=== PATIENT | female | born 2000 | race Two or more races ===

== ENCOUNTER 2025-01-27 10:26 | Emergency (ER) | payer MEDICAID, SELFPAY ==
[2025-01-27] VITALS (8 sets, daily range): BP systolic 91–121; BP diastolic 50–85; PULSE 82–207; RESP 19–25; TEMP 36.8; O2SAT 96–98; BMI 20.5
[2025-01-27] MEDS: ADENOSINE INJ 3 MG/ML VIAL 6 MG IVP (10:44)
--- NOTE | 2025-01-27 11:13 | EDNOTE_ITS ---
ED Arrhythmia Palp. RME/HPI General Chief Complaint: Arrhythmia/Palpitations Stated Complaint: HEART IS RACING, DIFF. BREATHING, HAS A.FIB Time Seen by Provider: 01/27/25 10:36 Arrival date/time: 01/27/25 10:26 24-year-old female patient coming in from home complaining of elevated heart rate, palpitations, mild dyspnea. Patient has a history of SVT. States this feels similar. Initial vital signs show heart rate greater than 200. Related Data Home Medications ?Medication ?Instructions ?Recorded ?Confirmed ferrous sulfate 325 mg (65 mg 1 tab PO DAILY 12/12/21 12/11/22 iron) tablet Previous Rx's ?Medication ?Instructions ?Recorded naproxen 500 mg tablet 500 mg PO BID PRN pain #30 t abs 04/22/23 Allergies Allergy/AdvReac Type Severity Reaction Status Date / Time [place]ang And Derivatives Allergy Severe Hives Verified 01/27/25 10:28 cat dander Allergy Watery Eye Verified 01/27/25 10:28 dog dander Allergy Watery Eye Verified 01/27/25 10:28 pollen extracts Allergy Watery Eye Verified 01/27/25 10:28 Review of Systems Review of Systems Systems Reviewed: All systems reviewed, normal except as documented Past Medical History Past Medical History NEUROLOGIC: Positive Neurological Disorders and 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) CARDIAC: Negative Cardiac Disorders or Congestive Heart Failure RESPIRATORY: Positive Asthma; Negative Chronic Obstructive Pulmonary Disease (COPD) GASTROINTESTINAL: Positive Gastrointestinal Disorders and Gastroesophageal Reflux Disease GENITOURINARY: Negative Genitourinary Disorders or Renal Disease MUSCULOSKELETAL: Negative Musculoskeletal Disorders ENDOCRINE: Negative Endocrine Disorders, Diabetes Mellitus Type 1 or Diabetes Mellitus Type 2 HEMATOLOGIC: Positive Anemia; Negative Blood Disorders PSYCHO/SOCIAL: Positive Anxiety Family History FAMILY HISTORY: Negative Family Cardiac Disorders Surgical History SURGICAL: Negative Endocrine Surgery, Ear Surgery or Abdominal Surgery Social History SMOKING STATUS: Current some day smoker SUBSTANCE USE: marijuana (smokes) ED Exam Narrative Physical exam: GENERAL APPEARANCE: alert and oriented x 4, well-developed, well-nourished, no acute distress VITALS: All vitals were reviewed and the pulse ox is 96% on room air, which is normal according to my interpretation. HEENT: Normocephalic, atraumatic; pupils equal, round, reactive to light; EOMI; mucous membranes pink, moist; oropharynx clear NECK: Supple LUNGS: CTABL; no wheezes, no rales, no rhonchi HEART: Tachycardic, regular rhythm; normal S1, S2; no murmurs ABDOMEN: non distended; normal BS; soft, no tenderness, no guarding, no rebound; no masses, no organomegaly, no hernia BACK: no CVA tenderness EXTREMITIES: atraumatic; no edema NEUROLOGIC: awake; alert and oriented x4; cranial nerves II-XII grossly intact; no focal sensory or motor deficits PSYCHIATRIC: appropriate mood and affect SKIN: warm, dry, normal color; no rashes Course Quality Measures none Orders Category Date Time Status Adenosine 6mg Inj [Adenocard Inj] Med 01/27/25 10:56 Discontinued 6 mg IVP X1 ONE Vital Signs Vital signs: Vital Signs Pulse Rate 200 H 01/27/25 10:40 Arrhythmia/Palpitations MDM Narrative MDM Narrative:: Patient given Adenosine 6 mg IV. Patient converted to sinus rhythm. Patient was observed for several hours without any complications. Patient remained stable while under my care and is to be discharged home. Patient data External records reviewed:: [facility] previous records (Per chart review, patient was seen here on 08/23/23 for SVT.) Clinical information provided by:: patient Social determinants that could affect healthcare access:: none Patient has the following chronic illnesses:: asthma How is presenting disease/condition affected by chronic disease/condition?: uneffected by Evaluation data The following diagnostics were reviewed and interpreted by me:: lab results, radiology exam(s) and EKG tracing(s) Lab and/or radiology exams considered but not ordered:: none Interpretation Summary: CBC normal, CMP normal, Troponin normal, UA unremarkable, UDS positive for marijuana. EKG shows sinus tachycardia, rate of 100, artifact, normal axis, no STEMI, according to my interpretation. [place] [facility] Report Signed Patient: CHRISTINE RUANO. Record#: [id number] Birthdate: 2000 Age/Sex: 24 / F Location: [facility] Attending Dr: Ordering Physician: Racheal Aiken MD Date of Service: 01/27/25 Procedure(s): XR chest 1V portable Accession Number(s): [id number] cc: Venkat Matias MD; NO PRIMARY/FAMILY,PHYSICIAN; Racheal Aiken MD~ Examination: AP chest single view TECHNIQUE: Upright AP portable chest single view Date and time: January 27, 2025 1141 hours Comparison December 11, 2022 INDICATIONS: Chest pain today. FINDINGS: Normal heart size. Lungs are clear. The osseous structures are intact IMPRESSION: No active disease. Dictated By: Venkat Matias MD Signed By: <Electronically signed by Venkat Matias MD in OV> 01/27/25 1153 Medications / Prescriptions Medications or Prescriptions considered but not ordered:: none Medication administrations:: Medication Administration History Discontinued Medications Adenosine (Adenosine Inj 3 Mg/Ml Vial) 6 mg IVP X1 ONE Stop: 01/27/25 10:57 Last Admin: 01/27/25 10:44 Dose: 6 mg Documented By: VG see above Consultations Consultation(s) initiated? (list below): No Diagnosis Differential diagnosis arrhythmia/palpitations: palpitations, sinus tachycardia, artial fibrillation, artial flutter and other (SVT, ACS, other arrhythmia) Most likely diagnosis given after review of the tests above:: see clinical impression below Admission Indicated Admission indicated?: not indicated Admission Request Was there a request for admission?: No Disposition Plan Disposition Plan: Discharge Discharge Attestation Discharge Attestation: The patient and all family members were given an opportunity to ask questions and understood the discharge instructions. Discharge instructions specifically effects, indications for sooner follow up or return to the emergency department, and the expected course of current diagnosis. Patient condition: Stable Critical Care Time Critical Care Time Critical Care Time: Yes Total Critical Care Time (min.): 35 Attestation: The high probability of sudden, clinically significant deterioration in the patient?s condition required the highest level of my preparedness to intervene urgently. The services I provided to this patient were to treat and/or prevent clinically significant deterioration. Services included the following: chart data review, reviewing nursing notes and/or old charts, documentation time, fashion consultant sales collaboration regarding findings and treatment options, medication orders and management, direct patient care, vital sign assessments and ordering, interpreting and reviewing diagnostic studies and lab tests. Aggregate critical care time includes only time during which I was engaged in work directly related to the patient?s care, as described above, whether at bedside or elsewhere in the Emergency Department. It did not include time spent performing other reported procedures or the services of residents, students, nurses or physician assistants. Discharge Plan Plan Patient Disposition: HOME (Self Care) Prescriptions/Referrals Prescriptions/Med Rec: No Action ferrous sulfate 325 mg (65 mg iron) tablet 1 tab PO DAILY Patient Comments: TAKE 1 TABLET BY MOUTH EVERY DAY FOR 30 DAYS naproxen 500 mg tablet 500 mg PO BID PRN (Reason: pain) Qty: 30 0RF Referrals: No Primary/Family,Physician [Primary Care Provider] - In 1 week Problem List Clinical Impression: SVT (supraventricular tachycardia) Patient/Caregiver Discharge Instructions Education Materials: Supraventricular Tachycardia Print Language: Montenegrin Stand Alone Forms: Sary Award Info., Patient Portal Info Letter
--- NOTE | 2025-01-27 11:33 | XR_ITS ---
Examination: AP chest single view TECHNIQUE: Upright AP portable chest single view Date and time: January 27, 2025 1141 hours Comparison December 11, 2022 INDICATIONS: Chest pain today. FINDINGS: Normal heart size. Lungs are clear. The osseous structures are intact IMPRESSION: No active disease.
[2025-01-27 12:27] LABS: Collection Type, Urine Clean Catch
[2025-01-27 12:32] LABS: Basophils # (Auto) 0.0 Thou/mm3 (0.0-0.2); Basophils % (Auto) 1 % (0-2.5); Eosinophils # (Auto) 0.1 Thou/mm3 (0.0-0.5); Eosinophils % (Auto) 1 % (0-10); Hematocrit 35.1 % (36.0-46.0); Hemoglobin 12.1 g/dL (12.0-16.0); Immature Granulocytes Auto 0.01 Thou/mm3 (0.00-0.00); Lymphocytes # (Auto) 3.0 Thou/mm3 (1.0-4.8); Lymphocytes % (Auto) 40 % (10-50); Mean Corpuscular HGB Conc 34.5 g/dl (31.0-37.0); Mean Corpuscular Hemoglobin 32.0 pg (25.0-35.0); Mean Corpuscular Volume 93 fL (80-100); Monocytes # (Auto) 0.6 Thou/mm3 (0.0-0.8); Monocytes % (Auto) 8 % (0-12); Neutrophils # (Auto) 3.8 Thou/mm3 (1.8-7.7); Neutrophils % (Auto) 51 % (37-80); Nucleated Red Blood Cell # 0.00 Thou/mm3 (0.00-0.00); Nucleated Red Blood Cell % 0 /100 WBC (0); Platelet Count 295 Thou/mm3 (140-440); RDW Standard Deviation 46.8 fL (36.4-46.3); Red Blood Count 3.78 Miln/mm3 (4.00-5.20); White Blood Count 7.4 Thou/mm3 (3.6-11.0)
[2025-01-27 12:45] LABS: Bacteria,Urine Rare; Bilirubin,Urine Negative (Negative); Blood,Urine Negative (Negative); Clarity,Urine Clear (Clear/Hazy); Color,Urine Lt-Yellow (Lt Yel-Yel); Culture Indicated,Urine Not Indicated; Glucose, Urine Negative (Negative); Ketones,Urine Negative (Negative); Leukocyte Esterase,Urine Negative (Negative); Nitrite,Urine Negative (Negative); PH,Urine 6.5 (5.0-7.0); Protein,Urine Negative (Neg - Trace); RBC,Urine 1 /hpf (0-3); Specific Gravity,Urine 1.009 (1.001-1.035); Squamous Epithelial Cell,Urine 1 /hpf (0-5); Urobilinogen,Urine Negative mg/dL (0.0-1.0); WBC,Urine 1 /hpf (0-5)
[2025-01-27 12:46] LABS: INR 1.0 (0.9-1.3); Partial Thromboplastin Time 25.9 Seconds (22.0-36.0); Prothrombin Time 11.4 Seconds (9.0-12.2)
[2025-01-27 12:46] LABS: HCG Qualitative,Urine Negative
[2025-01-27 12:52] LABS: Alanine Aminotransferase 16 U/L (10-49); Albumin, Serum 4.5 gm/dL (3.5-5.0); Albumin/Globulin Ratio 1.7 (1.2-2.2); Alkaline Phosphatase 75 U/L (46-116); Anion Gap 9 (7-16); Aspartate Amino Transferase 29 U/L (0-34); BUN/Creatinine Ratio 10 Ratio (12-20); Bilirubin,Total 0.5 mg/dL (0.3-1.2); Blood Urea Nitrogen 9 mg/dL (9-23); Calcium 9.5 mg/dL (8.3-10.6); Calcium (Corrected) 9.5 mg/dL (8.5-10.1); Carbon Dioxide 24.0 mMol/L (20.0-31.0); Chloride 107 mMol/L (98-107); Creatinine (Component) 0.9 mg/dL (0.6-1.3); Estimated Creatinine Clearance 84.3 mL/min (>60); Globulin 2.7 gm/dL (2.3-3.5); Glucose 108 mg/dL (74-106); Magnesium 1.8 mg/dL (1.6-2.6); Osmolality,Calculated 279 (275-295); Potassium 4.1 mMol/L (3.4-5.1); Sodium 140 mMol/L (136-145); Total Protein 7.2 gm/dL (5.7-8.2); Troponin I < 0.002 ng/mL (0.0-0.045); eGFR > 60 See Note
[2025-01-27 13:34] LABS: Amphetamine/Methamp Scrn,U Negative (Negative); Barbiturate Screen,Urine Negative (Negative); Benzodiazepines Screen,Urine Negative (Negative); Benzoylecgonine Screen, Ur Negative (Negative); Fentanyl Screen,Urine Negative (Negative); Opiate Screen,Urine Negative (Negative); THC Screen,Urine Positive (Negative)
== END 2025-01-27 15:28 | disposition home or self-care (01) ==
PROVIDERS: Emergency Provider Emergency Medicine
DX: I47.10 Supraventricular tachycardia, unspecified (principal); I48.91 Unspecified atrial fibrillation
CPT/HCPCS: 36415; 71045; 80053; 80307; 81001; 81025; 83735; 84484; 85025; 85610; 85730; 93005; 96374; 99284; J0153

== ENCOUNTER 2025-02-20 23:39 | Emergency (ER) | payer MEDICAID, SELFPAY ==
--- NOTE | 2025-02-20 23:41 | EKG_ITS ---
[facility] (Formerly [facility]) Test Date: 2025-02-20 Pat Name: CHRISTINE RUANO Department: Room: - Gender: Female Front Desk Manager: : 2000 Requested By: Delbert Medrano Order Number: [id number] Reading MD: Delbert Medrano Measurements Intervals [place] Rate: 91 P: 79 DE: 131 QRS: 71 QRSD: 77 T: 22 QT: 357 QTc: 441 Interpretive Statements SINUS RHYTHM NONSPECIFIC T-WAVE ABNORMALITY Compared to ECG 01/30/2025 04:06:12 Sinus tachycardia no longer present T-wave abnormality still present /store/S0/[id number].pdf
[2025-02-20 23:46] VITALS: BP 129/76; PULSE 100; RESP 20; TEMP 36.8; O2SAT 100
--- NOTE | 2025-02-21 00:13 | PD.EDRME ---
Rapid Medical Screening Exam [facility] Arrival date/time: 02/20/25 23:39 24F with history of SVT and possible history of seizures presents to ED with syncopal episode and possible seizure today. Patient also has CP, SOB, and dizziness. Chief Complaint: General Adult/Misc Complain Vital signs: Vital Signs Temperature 98.2 F 02/20/25 23:46 Pulse Rate 100 02/20/25 23:46 Respiratory Rate 20 02/20/25 23:46 Blood Pressure 129/76 02/20/25 23:46 Pulse Oximetry (%) 100 02/20/25 23:46 Oxygen Delivery Method Room Air 02/20/25 23:46
[2025-02-21 00:42] VITALS: BMI 20.5
--- NOTE | 2025-02-21 01:26 | PD.EDARRY ---
ED Arrhythmia Palp. RME/HPI General Chief Complaint: Seizure Stated Complaint: CHEST AREA PAIN Arrival date/time: 02/20/25 23:39 RME / HPI RME / HPI narrative: 02/20/25 23:39 24F with history of SVT and possible history of seizures presents to ED with syncopal episode and possible seizure today. Patient also has CP, SOB, and dizziness. DR. HARTMAN MAIN ED EVALUATION: 24 y/o female with Hx of SVT and Seizures presents to ED c/o heart palpitations, lightheadedness, right shoulder twitching, and numbness and tingling to the left side of the tongue while trying to sleep x just LPN CARE MANAGER. Her last episode of SVT was approximately 2 weeks ago. Patient reports grabbing onto the window sill and falling to the ground. She has noticed these symptoms occur when trying to sleep or attempting to get up slowly. Patient is on supplemental iron but no medication for management of SVT. Patient has no PCP but is generally seen at [facility]. No other concerns or complaints expressed at this time. Related Data Home Medications ?Medication ?Instructions ?Recorded ?Confirmed ferrous sulfate 325 mg (65 mg 1 tab PO DAILY 12/12/21 12/11/22 iron) tablet Previous Rx's ?Medication ?Instructions ?Recorded naproxen 500 mg tablet 500 mg PO BID PRN pain #30 tabs 04/22/23 metoprolol succinate 25 mg 25 mg PO QDAY #30 tabs 02/21/25 tablet,extended release 24 hr Allergies Allergy/AdvReac Type Severity Reaction Status Date / Time [place] And Derivatives Allergy Severe Hives Verified 01/27/25 10:28 cat dander Allergy Watery Eye Verified 01/27/25 10:28 dog dander Allergy Watery Eye Verified 01/27/25 10:28 pollen extracts Allergy Watery Eye Verified 01/27/25 10:28 Review of Systems Review of Systems Systems Reviewed: All systems reviewed, normal except as documented Past Medical History Past Medical History NEUROLOGIC: Positive Neurological Disorders and Seizures RESPIRATORY: Positive Asthma GASTROINTESTINAL: Positive Gastrointestinal Disorders and Gastroesophageal Reflux Disease HEMATOLOGIC: Positive Anemia Social History SUBSTANCE USE: marijuana (smokes) ED Exam Narrative Physical exam: Generally patient is alert and in no obvious distress, heart is regular rate and rhythm, lungs clear to auscultation equal bilaterally abdomen soft bowel sounds present nondistended nontender neurologic exam no focal motor or sensory deficits cranial nerves II through XII grossly intact Course Quality Measures none Orders Category Date Time Status EKG (ED ONLY) *Do not use* NOW Care 02/20/25 23:41 Completed EKG (ED Only) Stat Exams 02/20/25 23:41 Draft Vital Signs Vital signs: Vital Signs Temperature 98.2 F 02/20/25 23:46 Pulse Rate 100 02/20/25 23:46 Respiratory Rate 20 02/20/25 23:46 Blood Pressure 129/76 02/20/25 23:46 Pulse Oximetry (%) 100 02/20/25 23:46 Oxygen Delivery Method Room Air 02/20/25 23:46 Arrhythmia/Palpitations MDM Narrative MDM Narrative:: Scribe Attestation: Aster Broussard, kaiser scribing for and in the presence of Dr. Hartman. Provider Notation: Although this document has been carefully reviewed, there may still be some phonetic and other typographical errors.? These errors are purely grammatical due to imperfections in the software program and should not be construed in any way to? compromise the substance of the patient's medical care during this visit. Patient did not arrive in supraventricular tachycardia however she has a history of supraventricular tachycardia and may have been in it earlier this evening. Patient will be started on metoprolol to be taken as prescribed. EKG here tonight done at 11:54 PM shows normal sinus rhythm at a rate of 91 without ischemic change or ectopy. Patient did not have an episode of SVT while on the air sampling and monitoring here in the emergency room. Patient will be discharged in stable condition. Patient data External records reviewed:: [facility] previous records (Reviewed prior ED records from 01/27/25. Patient was seen for SVT (supraventricular tachycardia).) Clinical information provided by:: patient Social determinants that could affect healthcare access:: substance use (Marijuana) Patient has the following chronic illnesses:: SVT, Seizure, Asthma, GERD, Anemia How is presenting disease/condition affected by chronic disease/condition?: exacerbated by Evaluation data The following diagnostics were reviewed and interpreted by me:: EKG tracing(s) Lab and/or radiology exams considered but not ordered:: None Interpretation Summary: See MDM above Medications / Prescriptions Medications or Prescriptions considered but not ordered:: None Medication administrations:: See above if any Consultations Consultation(s) initiated? (list below): No Diagnosis Differential diagnosis arrhythmia/palpitations: palpitations, anxiety, sinus tachycardia, artial fibrillation, artial flutter, ventricular premature beats, supraventricular tachycardia, ventricular tachycardia and WPW Most likely diagnosis given after review of the tests above:: SVT Admission Indicated Admission indicated?: not indicated Explain why admission is indicated or not indicated:: Patient does not meet admission criteria. Admission Request Was there a request for admission?: No Disposition Plan Disposition Plan: Discharge Discharge Attestation Discharge Attestation: The patient and all family members were given an opportunity to ask questions and understood the discharge instructions. Discharge instructions specifically effects, indications for sooner follow up or return to the emergency department, and the expected course of current diagnosis. Patient condition: Stable Discharge Plan Plan Patient Disposition: HOME (Self Care) Prescriptions/Referrals Prescriptions/Med Rec: New metoprolol succinate 25 mg tablet extended release 24 hr 25 mg PO QDAY Qty: 30 0RF No Action ferrous sulfate 325 mg (65 mg iron) tablet 1 tab PO DAILY Patient Comments: TAKE 1 TABLET BY MOUTH EVERY DAY FOR 30 DAYS naproxen 500 mg tablet 500 mg PO BID PRN (Reason: pain) Qty: 30 0RF Referrals: Dangelo Alatorre MD [Primary Care Provider] - In 1 week Problem List Clinical Impression: SVT (supraventricular tachycardia) Patient/Caregiver Discharge Instructions Education Materials: Your Heart Is at Risk, Treatment for Supraventricular ... Print Language: Upper Sorbian Stand Alone Forms: Sary Award Info., Patient Portal Info Letter
[2025-02-21 02:11] VITALS: BP 103/67; PULSE 71; RESP 16; TEMP 36.6; O2SAT 98
== END 2025-02-21 02:13 | disposition home or self-care (01) ==
PROVIDERS: Emergency Provider Emergency Medicine; PCP Family Medicine
DX: I47.10 Supraventricular tachycardia, unspecified (principal)
CPT/HCPCS: 93005; 99283

== ENCOUNTER 2025-02-23 16:15 | Emergency (ER) | payer MEDICAID, SELFPAY ==
--- NOTE | 2025-02-23 16:23 | EKG_ITS ---
[facility] Test Date: 2025-02-23 Pat Name: CHRISTINE RUANO Department: Room: - Gender: Female Biology Tutor: : 2000 Requested By: ED Temporary Provider Order Number: [id number] Reading MD: ED Temporary Provider Measurements Intervals [employer] Rate: 75 P: 79 ND: 119 QRS: 68 QRSD: 73 T: -18 QT: 353 QTc: 395 Interpretive Statements SINUS RHYTHM WITH SHORT ND INTERVAL NONSPECIFIC T-WAVE ABNORMALITY Compared to ECG 02/20/2025 23:54:42 Short ND interval now present T-wave abnormality still present /store/S0/[id number]/[id number].pdf
[2025-02-23 16:32] VITALS: BMI 18.6
[2025-02-23 16:33] VITALS: BP 116/80; PULSE 70; RESP 18; TEMP 37.2; O2SAT 97
--- NOTE | 2025-02-23 16:41 | XR_ITS ---
Examination: PA lateral chest 2 views TECHNIQUE: Upright PA lateral chest 2 views Date and time: February 15, 2025 1700 hours Comparison January 27, 2025 INDICATIONS: Chest pain and tachycardia today FINDINGS: Midthoracic dextroscoliosis 8 degrees Thoracolumbar levoscoliosis 10 degrees Normal heart size No pneumonia or pulmonary edema Mild hyperexpansion IMPRESSION: No pneumonia or pulmonary edema
--- NOTE | 2025-02-23 16:42 | XR_ITS ---
Examination: CT abdomen and pelvis without contrast. Coronal 3-D reconstructions. Sagittal 2-D reconstructions. Date and time of exam:February 23, 2025, 1740 hours Comparison May 14, 2017 INDICATIONS: Epigastric pain and right lower abdominal pain beginning one week ago CTDI: vol (mGy): 4.65 DLP: (mGycm): 243 Technique: Axial images of the abdomen have been obtained, 3 mm slice thickness Intravenous contrast material has not been administered. Low dose protocols were performed. One or more of the following dose reduction techniques were used; automated exposure control, adjustment of the mA and/or KV according to patient size, use of iterative reconstruction technique. Findings: No focal liver or splenic lesions No gallstones No pancreatic mass or peripancreatic edema No renal or ureteral calculi, no hydronephrosis Aorta normal size Normal appendix No bowel obstruction or diverticulitis Anteverted uterus Intact osseous structures Urinary bladder intact Osseous structures intact IMPRESSION: Negative for pancreatitis No renal or ureteral calculi. Normal appendix No bowel obstruction diverticulitis or free air
--- NOTE | 2025-02-23 16:43 | EDRME_ITS ---
Rapid Medical Screening [facility] Arrival date/time: 02/23/25 16:15 24-year-old female with no known medical history presents to the emergency room with a chief complaint of palpitations, headache, epigastric abdominal pain, right lower quadrant abdominal pain, vomiting x 1 week. I have greeted and performed a focused initial assessment of this patient. A comprehensive ED assessment and evaluation of the patient, analysis of all test results, and completion of the medical decision making process will be conducted by additional ED providers. Chief Complaint: Weakness Vital signs: Vital Signs Temperature 99.0 F 02/23/25 16:33 Pulse Rate 70 02/23/25 16:33 Respiratory Rate 18 02/23/25 16:33 Blood Pressure 116/80 02/23/25 16:33 Pulse Oximetry (%) 97 02/23/25 16:33 Oxygen Delivery Method Room Air 02/23/25 16:33 Vital signs reviewed by provider: Yes
[2025-02-23 17:06] LABS: Basophils # (Auto) 0.1 Thou/mm3 (0.0-0.2); Basophils % (Auto) 1 % (0-2.5); Eosinophils # (Auto) 0.1 Thou/mm3 (0.0-0.5); Eosinophils % (Auto) 2 % (0-10); Hematocrit 38.0 % (36.0-46.0); Hemoglobin 12.8 g/dL (12.0-16.0); Immature Granulocytes Auto 0.01 Thou/mm3 (0.00-0.00); Lymphocytes # (Auto) 2.0 Thou/mm3 (1.0-4.8); Lymphocytes % (Auto) 30 % (10-50); Mean Corpuscular HGB Conc 33.7 g/dl (31.0-37.0); Mean Corpuscular Hemoglobin 32.0 pg (25.0-35.0); Mean Corpuscular Volume 95 fL (80-100); Monocytes # (Auto) 0.4 Thou/mm3 (0.0-0.8); Monocytes % (Auto) 6 % (0-12); Neutrophils # (Auto) 4.0 Thou/mm3 (1.8-7.7); Neutrophils % (Auto) 61 % (37-80); Nucleated Red Blood Cell # 0.00 Thou/mm3 (0.00-0.00); Nucleated Red Blood Cell % 0 /100 WBC (0); Platelet Count 271 Thou/mm3 (140-440); RDW Standard Deviation 47.4 fL (36.4-46.3); Red Blood Count 4.00 Miln/mm3 (4.00-5.20); White Blood Count 6.6 Thou/mm3 (3.6-11.0)
--- NOTE | 2025-02-23 17:11 | XR_ITS ---
Examination: CT brain head without contrast. 2-D sagittal coronal reconstructions Date and time of exam:February 23, 2025 1735 hours INDICATIONS: Onset headaches today CTDI: vol (mGy):45.1 DLP: (mGycm):860 Technique: Multiple CT axial sections of the brain have been obtained, 5 mm slice thickness. Contrast has not been administered. 2-D sagittal, coronal reconstructions have been obtained Low dose protocols were performed. One or more of the following dose reduction techniques were used; automated exposure control, adjustment of the mA and/or KV according to patient size, use of iterative reconstruction technique. Findings: No significant ventricular enlargement. Intra-axial or extra-axial hemorrhage density is not seen. No mass effect or midline shift Basal cisterns are not remarkable. Fourth ventricle is midline. Cranial vault intact. Impression: Negative for acute hemorrhage, mass effect or midline shift Advise clinical correlation and follow up accordingly
[2025-02-23] MEDS: ONDANSETRON ODT 4 MG TABRAP PO (17:18)
[2025-02-23 17:23] LABS: Collection Type, Urine Clean Catch
[2025-02-23 17:25] LABS: B-Type Natriuretic Peptide < 20 pg/mL (0-100)
[2025-02-23 17:28] LABS: Alanine Aminotransferase 15 U/L (10-49); Albumin, Serum 4.7 gm/dL (3.5-5.0); Albumin/Globulin Ratio 1.7 (1.2-2.2); Alkaline Phosphatase 75 U/L (46-116); Anion Gap 9 (7-16); Aspartate Amino Transferase 23 U/L (0-34); BUN/Creatinine Ratio 9 Ratio (12-20); Bilirubin,Total 1.0 mg/dL (0.3-1.2); Blood Urea Nitrogen 7 mg/dL (9-23); Calcium 9.6 mg/dL (8.3-10.6); Calcium (Corrected) 9.6 mg/dL (8.5-10.1); Carbon Dioxide 26.6 mMol/L (20.0-31.0); Chloride 108 mMol/L (98-107); Creatinine (Component) 0.8 mg/dL (0.6-1.3); Estimated Creatinine Clearance 83.3 mL/min (>60); Globulin 2.8 gm/dL (2.3-3.5); Glucose 107 mg/dL (74-106); Lipase 32 U/L (12-53); Osmolality,Calculated 284 (275-295); Potassium 4.1 mMol/L (3.4-5.1); Sodium 144 mMol/L (136-145); Total Protein 7.5 gm/dL (5.7-8.2); Troponin I < 0.002 ng/mL (0.0-0.045); eGFR > 60 See Note
[2025-02-23 18:10] LABS: Amorphous Crystals,Urine Present (Absent); Bilirubin,Urine Negative (Negative); Blood,Urine Negative (Negative); Clarity,Urine Turbid (Clear/Hazy); Color,Urine Yellow (Lt Yel-Yel); Glucose, Urine Negative (Negative); Ketones,Urine Negative (Negative); Leukocyte Esterase,Urine Positive (Negative); Nitrite,Urine Negative (Negative); PH,Urine 6.0 (5.0-7.0); Protein,Urine 1+ (Neg - Trace); RBC,Urine 7 /hpf (0-3); Specific Gravity,Urine 1.031 (1.001-1.035); Squamous Epithelial Cell,Urine 3 /hpf (0-5); Urobilinogen,Urine 2.0 mg/dL (0.0-1.0); WBC,Urine 6 /hpf (0-5)
[2025-02-23 18:11] LABS: Amphetamine/Methamp Scrn,U Negative (Negative); Barbiturate Screen,Urine Negative (Negative); Benzodiazepines Screen,Urine Negative (Negative); Benzoylecgonine Screen, Ur Negative (Negative); Fentanyl Screen,Urine Negative (Negative); Opiate Screen,Urine Negative (Negative); THC Screen,Urine Positive (Negative)
[2025-02-23 18:17] LABS: HCG Qualitative,Urine Negative
--- NOTE | 2025-02-23 20:33 | PD.EDANX ---
ED Anxiety RME/HPI General Chief Complaint: Weakness Stated Complaint: I FEEL WEAK, FAST HEART RATE, HEADACHE Time Seen by Provider: 02/23/25 20:27 Arrival date/time: 02/23/25 16:15 Limitations: no limitations RME / HPI RME / HPI narrative: 02/23/25 16:15 24-year-old female with no known medical history presents to the emergency room with a chief complaint of palpitations, headache, epigastric abdominal pain, right lower quadrant abdominal pain, vomiting x 1 week. I have greeted and performed a focused initial assessment of this patient. A comprehensive ED assessment and evaluation of the patient, analysis of all test results, and completion of the medical decision making process will be conducted by additional ED providers. Related Data Home Medications ?Medication ?Instructions ?Recorded ?Confirmed ferrous sulfate 325 mg (65 mg 1 tab PO DAILY 12/12/21 12/11/22 iron) tablet Previous Rx's ?Medication ?Instructions ?Recorded naproxen 500 mg tablet 500 mg PO BID PRN pain #30 tabs 04/22/23 metoprolol succinate 25 mg 25 mg PO QDAY #30 tabs 02/21/25 tablet,extended release 24 hr Allergies Allergy/AdvReac Type Severity Reaction Status Date / Time [place] And Derivatives Allergy Severe Hives Verified 02/23/25 16:18 cat dander Allergy Watery Eye Verified 02/23/25 16:18 dog dander Allergy Watery Eye Verified 02/23/25 16:18 pollen extracts Allergy Watery Eye Verified 02/23/25 16:18 Review of Systems Review of Systems Systems Reviewed: All systems reviewed, normal except as documented ED Exam General Limitations: Present no limitations General appearance: Present alert and in no apparent distress Head Head exam: Present atraumatic Eye Eye exam: Present normal appearance, PERRL and EOMI ENT ENT exam: Present normal exam, normal oropharynx and mucous membranes moist Neck Neck exam: Present normal inspection, full ROM and trachea midline Chest Chest inspection: Present normal inspection and symmetric chest wall rise Respiratory Respiratory exam: Present normal lung sounds bilaterally Cardiovascular Cardiovascular exam: Present regular rate and normal rhythm Abdominal Exam Abdominal exam: Present soft Extremities Exam Extremities exam: Present normal inspection and full ROM Back Exam Back exam: Present normal inspection and full ROM Neurological Exam Neurological exam: Present alert and oriented X3 Psychiatric Psychiatric exam: Present normal affect, normal mood and anxious Skin Skin exam: Present warm, dry, intact and normal color Course Orders Category Date Time Status EKG (ED ONLY) *Do not use* NOW Care 02/23/25 16:[address] abdomen pelvis wo con Stat Exams 02/23/25 16:[address] head/brain wo con Stat Exams 02/23/25 17:11 Completed EKG (ED Only) Stat Exams 02/23/25 16:23 Draft XR chest 2V Stat Exams 02/23/25 16:41 Completed B-Type Natriuretic Peptide Stat Lab 02/23/25 16:57 Completed CBC Stat Lab 02/23/25 16:57 Completed Comprehensive Metabolic Panel Stat Lab 02/23/25 16:57 Completed Drug Screen,Urine Stat Lab 02/23/25 17:17 Completed HCG Qualitative,Urine Stat Lab 02/23/25 17:17 Completed Lipase Stat Lab 02/23/25 16:57 Completed Troponin I Stat Lab 02/23/25 16:57 Completed Urinalysis Stat Lab 02/23/25 17:17 Completed Urine Culture Stat Lab 02/23/25 17:17 Received Ondansetron Odt [Zofran Odt] Med 02/23/25 16:42 Discontinued 4 mg PO X1 ONE Vital Signs Vital signs: Vital Signs Temperature 99.0 F 02/23/25 16:33 Pulse Rate 70 02/23/25 16:33 Respiratory Rate 18 02/23/25 16:33 Blood Pressure 116/80 02/23/25 16:33 Pulse Oximetry (%) 97 02/23/25 16:33 Oxygen Delivery Method Room Air 02/23/25 16:33 Anxiety MDM Narrative MDM Narrative: Work up here is unremarkable. Medications / Prescriptions Medication administrations:: Medication Administration History Discontinued Medications Ondansetron HCl (Ondansetron Odt 4 Mg Tabrap) 4 mg PO X1 ONE; Protocol Stop: 02/23/25 16:43 Last Admin: 02/23/25 17:18 Dose: 4 mg Documented By: DO Comments: unable to scan Discharge Plan Prescriptions/Referrals Prescriptions/Med Rec: No Action ferrous sulfate 325 mg (65 mg iron) tablet 1 tab PO DAILY Patient Comments: TAKE 1 TABLET BY MOUTH EVERY DAY FOR 30 DAYS naproxen 500 mg tablet 500 mg PO BID PRN (Reason: pain) Qty: 30 0RF metoprolol succinate 25 mg tablet extended release 24 hr 25 mg PO QDAY Qty: 30 0RF Referrals: Dangelo Alatorre MD [Primary Care Provider] - In 1 week Patient/Caregiver Discharge Instructions Print Language: Japanese
[2025-02-23 21:20] VITALS: BP 123/78; PULSE 67; RESP 18; TEMP 36.8; O2SAT 99
--- NOTE | 2025-02-23 21:45 | PD.EDNV ---
Nausea/Vomit./Diarrhea-RME/HPI General Chief complaint: Weakness Stated complaint: I FEEL WEAK, FAST HEART RATE, HEADACHE Time Seen by Provider: 02/23/25 20:27 Arrival date/time: 02/23/25 16:15 RME / HPI RME / HPI Narrative: 02/23/25 16:15 24-year-old female with no known medical history presents to the emergency room with a chief complaint of palpitations, headache, epigastric abdominal pain, right lower quadrant abdominal pain, vomiting x 1 week. I have greeted and performed a focused initial assessment of this patient. A comprehensive ED assessment and evaluation of the patient, analysis of all test results, and completion of the medical decision making process will be conducted by additional ED providers. 24 y/o female with Hx of Marijuana use and Hx of GERD use presents to ED c/o nausea, vomiting, and unintentional weight loss x 1 week. Patient reports feeling nauseated and vomiting shortly after she eats. Denies burning sensation to the epigastric chest area. Patient states she has quit marijuana use. No other concerns or complaints expressed at this time. Related Data Home Medications ?Medication ?Instructions ?Recorded ?Confirmed ferrous sulfate 325 mg (65 mg 1 tab PO DAILY 12/12/21 12/11/22 iron) tablet Previous Rx's ?Medication ?Instructions ?Recorded naproxen 500 mg tablet 500 mg PO BID PRN pain #30 tabs 04/22/23 metoprolol succinate 25 mg 25 mg PO QDAY #30 tabs 02/21/25 tablet,extended release 24 hr pantoprazole 40 mg tablet,delayed 40 mg PO QDAY #30 tabs 02/23/25 release (Protonix) Allergies Allergy/AdvReac Type Severity Reaction Status Date / Time [place] And Derivatives Allergy Severe Hives Verified 02/23/25 16:18 cat dander Allergy Watery Eye Verified 02/23/25 16:18 dog dander Allergy Watery Eye Verified 02/23/25 16:18 pollen extracts Allergy Watery Eye Verified 02/23/25 16:18 Review of Systems Review of Systems Systems Reviewed: All systems reviewed, normal except as documented Past Medical History Past Medical History NEUROLOGIC: Positive Neurological Disorders and Seizures RESPIRATORY: Positive Asthma GASTROINTESTINAL: Positive Gastrointestinal Disorders and Gastroesophageal Reflux Disease HEMATOLOGIC: Positive Anemia PSYCHO/SOCIAL: Positive Anxiety Social History SMOKING STATUS: Former smoker SUBSTANCE USE: marijuana ED Exam Narrative Physical exam: Generally patient is alert in no obvious distress thinly built female. Heart is regular rate and rhythm. Lungs auscultation equal bilaterally. Abdomen soft bowel sounds present and nontender. Skin is warm pale and dry. Neurologic exam no focal motor or sensory deficits cranial nerves II through XII gross intact. Course Course Course Narrative: CXR is ordered for determining the etiology of shortness of breath. Quality Measures none Orders Category Date Time Status EKG (ED ONLY) *Do not use* NOW Care 02/23/25 16:[address] abdomen pelvis wo con Stat Exams 02/23/25 16:[address] head/brain wo con Stat Exams 02/23/25 17:11 Completed EKG (ED Only) Stat Exams 02/23/25 16:23 Draft XR chest 2V Stat Exams 02/23/25 16:41 Completed B-Type Natriuretic Peptide Stat Lab 02/23/25 16:57 Completed CBC Stat Lab 02/23/25 16:57 Completed Comprehensive Metabolic Panel Stat Lab 02/23/25 16:57 Completed Drug Screen,Urine Stat Lab 02/23/25 17:17 Completed HCG Qualitative,Urine Stat Lab 02/23/25 17:17 Completed Lipase Stat Lab 02/23/25 16:57 Completed Troponin I Stat Lab 02/23/25 16:57 Completed Urinalysis Stat Lab 02/23/25 17:17 Completed Urine Culture Stat Lab 02/23/25 17:17 Received Ondansetron Odt [Zofran Odt] Med 02/23/25 16:42 Discontinued 4 mg PO X1 ONE Vital Signs Vital signs: Vital Signs Temperature 99.0 F 02/23/25 16:33 Pulse Rate 70 02/23/25 16:33 Respiratory Rate 18 02/23/25 16:33 Blood Pressure 116/80 02/23/25 16:33 Pulse Oximetry (%) 97 02/23/25 16:33 Oxygen Delivery Method Room Air 02/23/25 16:33 Nausea/Vomiting/Diarrhea MDM Narrative MDM Narrative:: Scribe Attestation: Aster Broussard am scribing for and in the presence of Dr. Solomon. Provider Notation: Although this document has been carefully reviewed, there may still be some phonetic and other typographical errors.? These errors are purely grammatical due to imperfections in the software program and should not be construed in any way to? compromise the substance of the patient's medical care during this visit. This patient's workup was protocoled prior to my evaluation. CAT scan of the abdomen and pelvis was unremarkable. Lab work is unremarkable. I believe the patient may be suffering from vomiting and early satiety due to her marijuana use. She may also have a degree of gastritis. Patient was counseled on the need to stop the marijuana. Protonix as prescribed. She must follow-up with her doctor for further treatment and evaluation. Patient data External records reviewed:: [facility] previous records Clinical information provided by:: patient Social determinants that could affect healthcare access:: mental health (Anxiety) Patient has the following chronic illnesses:: None How is presenting disease/condition affected by chronic disease/condition?: exacerbated by Evaluation data The following diagnostics were reviewed and interpreted by me:: lab results, radiology exam(s) and EKG tracing(s) Lab and/or radiology exams considered but not ordered:: None Interpretation Summary: RADIOLOGY Chest X-Ray: FINDINGS: Midthoracic dextroscoliosis 8 degrees Thoracolumbar levoscoliosis 10 degrees Normal heart size No pneumonia or pulmonary edema Mild hyperexpansion IMPRESSION: No pneumonia or pulmonary edema Head/Brain CT: Findings: No significant ventricular enlargement. Intra-axial or extra-axial hemorrhage density is not seen. No mass effect or midline shift Basal cisterns are not remarkable. Fourth ventricle is midline. Cranial vault intact. Impression: Negative for acute hemorrhage, mass effect or midline shift Advise clinical correlation and follow up accordingly Abdomen/Pelvis CT: Findings: No focal liver or splenic lesions No gallstones No pancreatic mass or peripancreatic edema No renal or ureteral calculi, no hydronephrosis Aorta normal size Normal appendix No bowel obstruction or diverticulitis Anteverted uterus Intact osseous structures Urinary bladder intact Osseous structures intact IMPRESSION: Negative for pancreatitis No renal or ureteral calculi. Normal appendix No bowel obstruction diverticulitis or free air Medications / Prescriptions Medications / Prescriptions considered but not ordered:: None Medication administrations:: Medication Administration History Discontinued Medications Ondansetron HCl (Ondansetron Odt 4 Mg Tabrap) 4 mg PO X1 ONE; Protocol Stop: 02/23/25 16:43 Last Admin: 02/23/25 17:18 Dose: 4 mg Documented By: DO Comments: unable to scan See above if any. Consultations Consultation(s) initiated? (list below): No Diagnosis Nausea Differential Diagnosis: food poisoning, gastroenteritis, clostridium difficile infection, drug-induced nausea and vomiting and dehydration Most likely diagnosis given after review of the tests above:: None Admission Indicated Admission indicated?: not indicated Explain why admission is indicated or not indicated:: Patient does not meet admission criteria. Admission Request Was there a request for admission?: No Disposition Plan Disposition Plan: Discharge Discharge Attestation Discharge Attestation: The patient and all family members were given an opportunity to ask questions and understood the discharge instructions. Discharge instructions specifically effects, indications for sooner follow up or return to the emergency department, and the expected course of current diagnosis. Patient condition: Stable Discharge Plan Plan Patient Disposition: HOME (Self Care) Prescriptions/Referrals Prescriptions/Med Rec: New pantoprazole [Protonix] 40 mg tablet,delayed release (DR/EC) 40 mg PO QDAY Qty: 30 0RF No Action ferrous sulfate 325 mg (65 mg iron) tablet 1 tab PO DAILY Patient Comments: TAKE 1 TABLET BY MOUTH EVERY DAY FOR 30 DAYS naproxen 500 mg tablet 500 mg PO BID PRN (Reason: pain) Qty: 30 0RF metoprolol succinate 25 mg tablet extended release 24 hr 25 mg PO QDAY Qty: 30 0RF Referrals: Dangelo Alatorre MD [Primary Care Provider] - In 1 week Problem List Clinical Impression: Vomiting, Marijuana use Patient/Caregiver Discharge Instructions Additional Instructions: Protonix as prescribed. Stop the marijuana. Follow-up with your doctor. Return to ER as needed or if condition worsens. Print Language: Greenlandic Stand Alone Forms: Sary Award Info., Patient Portal Info Letter
== END 2025-02-23 22:17 | disposition home or self-care (01) ==
PROVIDERS: Nurse Practitioner Family; Emergency Provider Emergency Medicine; PCP Family Medicine
DX: R11.10 Vomiting, unspecified (principal); F12.90 Cannabis use, unspecified, uncomplicated; R07.9 Chest pain, unspecified; R00.0 Tachycardia, unspecified; R51.9 Headache, unspecified; R10.13 Epigastric pain; R10.31 Right lower quadrant pain
CPT/HCPCS: 36415; 70450; 71046; 74176; 80053; 80307; 81001; 81025; 83690; 83880; 84484; 85025; 87086; 93005; 99284; Q0162

== ENCOUNTER 2025-07-09 01:02 | Emergency (ER) | payer MEDICAID, SELFPAY ==
[2025-07-09 01:03] VITALS: PULSE 104; RESP 18; O2SAT 98; BMI 18.8
[2025-07-09 01:41] VITALS: BP 154/84; PULSE 92; RESP 18; TEMP 37.1; O2SAT 96
--- NOTE | 2025-07-09 02:13 | XR_ITS ---
Examination: Hand, Technique: Hand AP, oblique, lateral 3 views Date and time of exam: 07/09/2025 at 2:11 a.m. INDICATION: Laceration between the third and fourth fingers, the patient's hand was cut by piece of glass FINDINGS: There is mild but definite soft tissue swelling between the base of the third and fourth digits. I do not see any opaque foreign bodies in the soft tissues, all of the visible bones and joints appear normal IMPRESSION: 1. There is minimal soft tissue swelling in the area of the laceration 2. Otherwise entirely normal
--- NOTE | 2025-07-09 02:22 | EDNOTE_ITS ---
ED Wound/Laceration-RME/HPI General Chief Complaint: Wound/Laceration Stated Complaint: LACERATION TO RIGHT HAND Time Seen by Provider: 07/09/25 02:14 Arrival date/time: 07/09/25 01:02 RME / HPI RME / HPI narrative: See [facility] for Dr. Henry's HPI Documentation. Related Data Home Medications ?Medication ?Instructions ?Recorded ?Confirmed ferrous sulfate 325 mg (65 mg 1 tab PO DAILY 12/12/21 12/11/22 iron) tablet Previous Rx's ?Medication ?Instructions ?Recorded naproxen 500 mg tablet 500 mg PO BID PRN pain #30 t abs 04/22/23 metoprolol succinate 25 mg 25 mg PO QDAY #30 tabs 01/28 01/21 tablet,extended release 24 hr pantoprazole 40 mg tablet,delayed 40 mg PO QDAY #30 ta bs 02/23/25 release (Protonix) pantoprazole 40 mg tablet,delayed 40 mg PO QDAY #30 ta bs 02/27/25 release (Protonix) Allergies Allergy/AdvReac Type Severity Reaction Status Date / Time [place] And Derivatives Allergy Severe Hives Verified 02/23/25 16:18 cat dander Allergy Watery Eye Verified 02/23/25 16:18 dog dander Allergy Watery Eye Verified 02/23/25 16:18 pollen extracts Allergy Watery Eye Verified 02/23/25 16:18 Review of Systems Review of Systems Systems Reviewed: All systems reviewed, normal except as documented Past Medical History Past Medical History NEUROLOGIC: Positive Neurological Disorders and Seizures RESPIRATORY: Positive Asthma GASTROINTESTINAL: Positive Gastrointestinal Disorders and Gastroesophageal Reflux Disease HEMATOLOGIC: Positive Anemia PSYCHO/SOCIAL: Positive Recreational Drug Use Social History SMOKING STATUS: Current every day smoker SUBSTANCE USE: marijuana ED Exam Narrative Physical exam: See [facility] for Dr. Henry's Physical Exam Documentation. Course Quality Measures none Orders Category Date Time Status Set Up Suture Tray STAT Care 07/09/25 02:13 Completed Wound Care [Wound Care] NOW Care 07/09/25 02:13 Completed XR hand RT 2V Stat Exams 07/09/25 02:13 Completed Amoxicillin/Pot Clav 875 [Augmentin 875] Med 07/09/25 02:13 Discontinued 1 tab PO X1 ONE Bacitracin Oint pkt Med 07/09/25 02:13 Discontinued 1 gm TOP X1 ONE Ibuprofen Tab [Motrin Tab] Med 07/09/25 03:11 Discontinued 400 mg PO X1 ONE Lidocaine 1% Vial 20 ml [Xylocaine 1% 20 ML] Med 07/09/25 02:13 Discontinued 20 ml INFL X1 ONE TET,DIP/PERT AC (Adult)-Tdap [Boostrix Adult (Tdap) Med 07/09/25 02:13 Discontinued Vacc] 0.5 ml IMI .ONCE ONE Vital Signs Vital signs: Vital Signs Temperature 98.7 F 07/09/25 01:41 Pulse Rate 92 07/09/25 01:41 Respiratory Rate 18 07/09/25 01:41 Blood Pressure 154/84 H 07/09/25 01:41 Pulse Oximetry (%) 96 07/09/25 01:41 Oxygen Delivery Method Room Air 07/09/25 01:41 PROCEDURES: Laceration Laceration 1: Site: hand (Third webspace) Side (If applicable): right Size (cm): 1.5 Description: linear Depth: simple, single layer Local Anesthetic: lidocaine 1% Amount of anesthesia used (mL): 3 Pre-repair: wound explored and irrigated extensively Skin layer closed with: nylon Suture size (cm): 4-0 Number of sutures: 3 Technique: simple, interrupted Wound / Laceration MDM Narrative MDM Narrative:: This section includes all my notes and documentations, including HPI, PE, and ED course. Tj Henry MD HPI: 24 y/o female here with right hand wound while doing dishes just [employer]. Between 3rd and 4th finger, she reports open wound with active bleeding. She can move and feel the fingers normally. No other complaints. ROS: All negative except as documented in HPI. Physical Exam: General: Alert and oriented. No acute distress. Eyes: Conjunctivae and lids clear. ENT: No nasal congestion. Neck: Supple. Lungs: No respiratory distress. Skin: Warm and dry. In the 3rd webspace, there is 1.5 cm for the skin- thickness laceration with active bleeding. No NVT injury. Neuro: Alert and oriented X 3. I reviewed all diagnostic test results: My interpretation of the right hand x-rays is no acute findings. At this point, diagnoses include: Laceration of Right Hand Treatment here included: Laceration repair (procedure) Augmentin 875 mg PO Tdap (patient declined) Significant treatment noted. No NVT injury after laceration repair. Provided good wound care instructions. Based on my best medical judgment, made decision no further evaluation or treatment indicated at this time. Patient and sister understands and agrees to the discharge instructions customized and printed, see below. Discharge instructions from Dr. Henry:? -- Your laceration was repaired with 3 stitches. -- Keep the current dressing intact for 24 hours. -- After 24 hours, change the dressing once daily. -- First remove the dressing gently.? If it does not come off easily, run water through it until it comes off easily. -- Then gently wash with soap and water. -- After completely drying, apply antibiotic ointment and new dressing. -- Elevate above the heart level today and tomorrow as much as possible.? Placing the hand on the head is a good method. -- See your doctor or return here in 7 days for suture removal.? Total of 3 stitches. -- Seek immediate medical care with fever, spreading redness from the wound, or with any concerns. -- You were given a dose of antibiotic here, no need to take more unless you develop infection. Tj Henry MD Patient data External records reviewed:: [facility] previous records (Reviewed prior ED records from 02/23/25. Patient was seen for Marijuana use.) Clinical information provided by:: patient Social determinants that could affect healthcare access:: substance use (Marijuana) Patient has the following chronic illnesses:: Seizures, Asthma, Gastroesophageal Reflux Disease, Anemia, Recreational Drug Use How is presenting disease/condition affected by chronic disease/condition?: exacerbated by Evaluation data The following diagnostics were reviewed and interpreted by me:: radiology exam(s) Lab and/or radiology exams considered but not ordered:: None Interpretation Summary: My interpretation of the right hand x-rays is no acute findings. Medications / Prescriptions Medications or Prescriptions considered but not ordered:: None Medication administrations:: Medication Administration History Discontinued Medications Amoxicillin/Clavulanate Potassium (Amoxicillin/Pot Clav 875 Tablet) 1 tab PO X1 ONE Stop: 07/09/25 02:14 Last Admin: 07/09/25 02:52 Dose: 1 tab Documented By: MARIA VICTORIA Bacitracin (Bacitracin Oint 1 Gm Packet) 1 gm TOP X1 ONE Stop: 07/09/25 02:14 Last Admin: 07/09/25 03:34 Dose: Not Given Documented By: CVL Non-Admin Reason: Change of Condition Diphtheria/Tetanus/Acell Pertussis (Diphth,Pertuss(Acell),Tet Vac 0.5 Ml Syr- Adult) 0.5 ml IMi .ONCE ONE Stop: 07/09/25 02:14 Last Admin: 07/09/25 03:26 Dose: Not Given Documented By: CVL Non-Admin Reason: Patient Refused Ibuprofen (Ibuprofen Tab 400 Mg Tablet) 400 mg PO X1 ONE Stop: 07/09/25 03:12 Last Admin: 07/09/25 03:16 Dose: 400 mg Documented By: CVL Lidocaine HCl (Lidocaine Hcl 1% 20 Ml Vial) 20 ml INFL X1 ONE Stop: 07/09/25 02:14 Last Admin: 07/09/25 03:25 Dose: 20 ml Documented By: CVL Treatment here included: Laceration repair (procedure) Augmentin 875 mg PO Tdap (patient declined) Consultations Consultation(s) initiated? (list below): No Diagnosis Wound Differential Diagnosis: laceration, abrasion and avulsion of skin Most likely diagnosis given after review of the tests above:: Laceration of Right Hand Admission Indicated Admission indicated?: not indicated Explain why admission is indicated or not indicated:: With significant improvement and no condition needing emergent intervention, there was no indication for admission. Admission Request Was there a request for admission?: No Disposition Plan Disposition Plan: Discharge Discharge Attestation Discharge Attestation: The patient and all family members were given an opportunity to ask questions and understood the discharge instructions. Discharge instructions specifically effects, indications for sooner follow up or return to the emergency department, and the expected course of current diagnosis. Patient condition: Stable Discharge Plan Plan Patient Disposition: HOME (Self Care) Prescriptions/Referrals Prescriptions/Med Rec: No Action ferrous sulfate 325 mg (65 mg iron) tablet 1 tab PO DAILY Patient Comments: TAKE 1 TABLET BY MOUTH EVERY DAY FOR 30 DAYS naproxen 500 mg tablet 500 mg PO BID PRN (Reason: pain) Qty: 30 0RF metoprolol succinate 25 mg tablet extended release 24 hr 25 mg PO QDAY Qty: 30 0RF pantoprazole [Protonix] 40 mg tablet,delayed release (DR/EC) 40 mg PO QDAY Qty: 30 0RF pantoprazole [Protonix] 40 mg tablet,delayed release (DR/EC) 40 mg PO QDAY Qty: 30 0RF Problem List Clinical Impression: Laceration of right hand Patient/Caregiver Discharge Instructions Discharge Activity: activity as tolerated Education Materials: ED Laceration, Hand: All Closures Additional Instructions: Discharge instructions from Dr. Henry:? -- Your laceration was repaired with 3 stitches. -- Keep the current dressing intact for 24 hours. -- After 24 hours, change the dressing once daily. -- First remove the dressing gently.? If it does not come off easily, run water through it until it comes off easily. -- Then gently wash with soap and water. -- After completely drying, apply antibiotic ointment and new dressing. -- Elevate above the heart level today and tomorrow as much as possible.? Placing the hand on the head is a good method. -- See your doctor or return here in 7 days for suture removal.? Total of 3 stitches. -- Seek immediate medical care with fever, spreading redness from the wound, or with any concerns. -- You were given a dose of antibiotic here, no need to take more unless you develop infection. Print Language: [place] Stand Alone Forms: Sary Award Info., Patient Portal Info Letter
[2025-07-09] MEDS: AMOXICILLIN/POT CLAV 875 TABLET 1 TAB PO (02:52)
[2025-07-09] MEDS: IBUPROFEN TAB 400 MG TABLET PO (03:16)
[2025-07-09] MEDS: LIDOCAINE HCL 1% 20 ML VIAL INFL (03:25)
== END 2025-07-09 04:01 | disposition home or self-care (01) ==
LOC: SERX 04:54
PROVIDERS: Emergency Provider Emergency Medicine; PCP Family Medicine
DX: S61.411A Laceration without foreign body of right hand, initial encounter (principal)
CPT/HCPCS: 12002; 73120; 99282; J3490; A9270

== ENCOUNTER 2025-07-15 12:20 | Emergency (ER) | payer MEDICAID, SELFPAY ==
[2025-07-15 12:30] VITALS: BP 113/79; PULSE 110; RESP 18; TEMP 37.1; O2SAT 98; BMI 20.7
--- NOTE | 2025-07-15 12:35 | XR_ITS ---
EXAMINATION: PA lateral chest 2 views TECHNIQUE: Upright PA lateral chest 2 views Date and time: July 15, 2025, 1331 hours INDICATIONS: Tachycardia and chest pressure today. FINDINGS: Normal heart size No pneumonia or pulmonary edema Mild thoracic dextroscoliosis IMPRESSION: No pneumonia or pulmonary edema
--- NOTE | 2025-07-15 12:35 | EKG_ITS ---
[facility] Test Date: 2025-07-15 Pat Name: CHRISTINE RUANO Department: Room: - Gender: Female [employer]: : 2000 Requested By: Nathanael Shoemaker (BRAD) Order Number: [id number] Reading MD: Nathanael Shoemaker (TEAM GUIDE) Measurements Intervals [place] Rate: 93 P: 78 AR: 117 QRS: 73 QRSD: 72 T: 14 QT: 352 QTc: 440 Interpretive Statements SINUS RHYTHM WITH SHORT AR INTERVAL POSSIBLE LEFT ATRIAL ENLARGEMENT [-0.1mV P-WAVE IN V1/V2] NONSPECIFIC T-WAVE ABNORMALITY Compared to ECG 02/23/2025 16:30:05 No significant changes /store/S0/[id number].pdf
--- NOTE | 2025-07-15 12:37 | PD.EDRME ---
Rapid Medical Screening Exam RME Arrival date/time: 07/15/25 12:20 24-year-old female presents for acute upper complaints patient reports that she is here for suture removal from her right hand and patient also reports that she been having tachycardia and chest pressure Chief Complaint: Hand/Wrist Problems Vital signs: Vital Signs Temperature 98.7 F 07/15/25 12:30 Pulse Rate 110 H 07/15/25 12:30 Respiratory Rate 18 07/15/25 12:30 Blood Pressure 113/79 07/15/25 12:30 Pulse Oximetry (%) 98 07/15/25 12:30 Oxygen Delivery Method Room Air 07/15/25 12:30 Vital signs reviewed by provider: Yes Exam: On exam patient does appear to be tachycardic Clinical Impression: Lab work and imaging ordered
[2025-07-15 13:34] LABS: Basophils # (Auto) 0.0 Thou/mm3 (0.0-0.2); Basophils % (Auto) 0 % (0-2.5); Eosinophils # (Auto) 0.1 Thou/mm3 (0.0-0.5); Eosinophils % (Auto) 1 % (0-10); Hematocrit 34.4 % (36.0-46.0); Hemoglobin 11.6 g/dL (12.0-16.0); Immature Granulocytes Auto 0.02 Thou/mm3 (0.00-0.00); Lymphocytes # (Auto) 1.8 Thou/mm3 (1.0-4.8); Lymphocytes % (Auto) 21 % (10-50); Mean Corpuscular HGB Conc 33.7 g/dl (31.0-37.0); Mean Corpuscular Hemoglobin 32.2 pg (25.0-35.0); Mean Corpuscular Volume 96 fL (80-100); Monocytes # (Auto) 0.5 Thou/mm3 (0.0-0.8); Monocytes % (Auto) 6 % (0-12); Neutrophils # (Auto) 6.1 Thou/mm3 (1.8-7.7); Neutrophils % (Auto) 72 % (37-80); Nucleated Red Blood Cell # 0.00 Thou/mm3 (0.00-0.00); Nucleated Red Blood Cell % 0 /100 WBC (0); Platelet Count 260 Thou/mm3 (140-440); RDW Standard Deviation 49.3 fL (36.4-46.3); Red Blood Count 3.60 Miln/mm3 (4.00-5.20); White Blood Count 8.4 Thou/mm3 (3.6-11.0)
[2025-07-15 13:53] LABS: HCG Qualitative,Urine Negative
[2025-07-15 13:55] LABS: Alanine Aminotransferase 17 U/L (10-49); Albumin, Serum 4.5 gm/dL (3.5-5.0); Albumin/Globulin Ratio 1.5 (1.2-2.2); Alkaline Phosphatase 64 U/L (46-116); Anion Gap 7 (7-16); Aspartate Amino Transferase 31 U/L (0-34); BUN/Creatinine Ratio 18 Ratio (12-20); Bilirubin,Total 0.6 mg/dL (0.3-1.2); Blood Urea Nitrogen 14 mg/dL (9-23); Calcium 9.3 mg/dL (8.3-10.6); Calcium (Corrected) 9.3 mg/dL (8.5-10.1); Carbon Dioxide 26.7 mMol/L (20.0-31.0); Chloride 103 mMol/L (98-107); Creatinine (Component) 0.8 mg/dL (0.6-1.3); Estimated Creatinine Clearance 98.7 mL/min (>60); Free T4 (Free Thyroxine) 1.79 ng/dL (0.89-1.76); Globulin 3.0 gm/dL (2.3-3.5); Glucose 86 mg/dL (74-106); Osmolality,Calculated 273 (275-295); Potassium 3.7 mMol/L (3.4-5.1); Sodium 137 mMol/L (136-145); Thyroid Stimulating Hormone 0.77 uIU/mL (0.55-4.78); Total Protein 7.5 gm/dL (5.7-8.2); Troponin I < 0.002 ng/mL (0.0-0.045); eGFR > 60 See Note
[2025-07-15 14:49] LABS: Amphetamine/Methamp Scrn,U Negative (Negative); Barbiturate Screen,Urine Negative (Negative); Benzodiazepines Screen,Urine Negative (Negative); Benzoylecgonine Screen, Ur Negative (Negative); Fentanyl Screen,Urine Negative (Negative); Opiate Screen,Urine Negative (Negative); THC Screen,Urine Positive (Negative)
--- NOTE | 2025-07-15 16:26 | EDNOTE_ITS ---
<Statement entered by Racheal Aiken MD - 07/30/25 07:23> As co-signing physician, I was present and available for consult prn. I concur with the plan and care as documented by the midlevel provider. Upper Extremity Injury RME/HPI General Chief Complaint: Hand/Wrist Problems Stated Complaint: FINGERS R) HAND FROZEN AFTER STITCHES Time Seen by Provider: 07/15/25 16:16 Arrival date/time: 07/15/25 12:20 24-year-old female patient came in for evaluation regarding wound check. Patient sustained a laceration to the hand, incident happened about 5 days ago, came to the emergency room and repair and suturing was done. Today patient woke up with a hand described as frozen, and having difficulty extending the hand. Denies any redness denies any swelling denies any fever. Patient also complained of hyperventilation tachycardia and jittery. Denies any other complaints. Patient is not taking any medication. RME / HPI RME / HPI narrative: 07/15/25 12:20 24-year-old female presents for acute upper complaints patient reports that she is here for suture removal from her right hand and patient also reports that she been having tachycardia and chest pressure Exam: On exam patient does appear to be tachycardic Impression: Lab work and imaging ordered Related Data Home Medications ?Medication ?Instructions ?Recorded ?Confirmed ferrous sulfate 325 mg (65 mg 1 tab PO DAILY 12/12/21 12/11/22 iron) tablet Previous Rx's ?Medication ?Instructions ?Recorded naproxen 500 mg tablet 500 mg PO BID PRN pain #30 t abs 04/22/23 metoprolol succinate 25 mg 25 mg PO QDAY #30 tabs 01/28 01/21 tablet,extended release 24 hr pantoprazole 40 mg tablet,delayed 40 mg PO QDAY #30 ta bs 02/23/25 release (Protonix) pantoprazole 40 mg tablet,delayed 40 mg PO QDAY #30 ta bs 02/27/25 release (Protonix) Allergies Allergy/AdvReac Type Severity Reaction Status Date / Time [place] And Derivatives Allergy Severe Hives Verified 07/15/25 12:26 cat dander Allergy [place] Verified 07/15/25 12:26 dog dander Allergy Watery Eye Verified 07/15/25 12:26 pollen extracts Allergy Watery Eye Verified 07/15/25 12:26 Review of Systems Review of Systems Narrative Review of Systems: Review of system reviewed and within normal limits except mentioned in HPI ED Exam Narrative Physical exam: VITAL SIGNS: Reviewed. GENERAL APPEARANCE: Alert and interactive, follows commands, no acute distress, HEAD AND FACE: Non-traumatic. ENT: PERRL, pink conjunctivitis, eyelid no trauma, Mucous membrane moist. NECK: Supple, nontender, no nuchal rigidity. CHEST: No tenderness, no crepitus, no paradoxical movement, no retractions. LUNGS: Clear, well ventilated, symmetric, no rales, no wheezing, no ronchi, no stridor, good breath sounds bilaterally. HEART: Regular rate, regular rhythm, no murmur, no gallops. ABDOMEN: Soft, positive bowel sounds, nondistended, no guarding, nontender, no rebound, no masses, RECTAL: Deferred. GENITAL: Deferred. NEUROLOGICAL: Gross motor function intact sensory function intact, Appropriate for age. MUSCULOSKELETAL: low back nontender, full range of motion. EXTREMITIES: + Hand laceration between 3rd and 4th finger, with sutures intact, no redness no swelling full range of motion of the finger. Nontender, SKIN: Color pink, dry, no rash, no lacerations, no abrasions, no contusions. LYMPHATICS: Deferred. Course Quality Measures none Orders Category Date Time Status EKG (ED ONLY) *Do not use* NOW Care 07/15/25 12:35 Completed EKG (ED Only) Stat Exams 07/15/25 12:35 Draft XR chest 2V Stat Exams 07/15/25 12:35 Completed CBC Stat Lab 07/15/25 13:23 Completed Comprehensive Metabolic Panel Stat Lab 07/15/25 13:23 Completed Drug Screen,Urine Stat Lab 07/15/25 13:25 Completed Free T4 (Free Thyroxine) Stat Lab 07/15/25 13:23 Completed HCG Qualitative,Urine Stat Lab 07/15/25 13:25 Completed TSH [Thyroid Stimulating Hormone] Stat Lab 07/15/25 13:23 Completed Troponin I Stat Lab 07/15/25 13:23 Completed Vital Signs Vital signs: Vital Signs Temperature 98.7 F 07/15/25 12:30 Pulse Rate 110 H 07/15/25 12:30 Respiratory Rate 18 07/15/25 12:30 Blood Pressure 113/79 07/15/25 12:30 Pulse Oximetry (%) 98 07/15/25 12:30 Oxygen Delivery Method Room Air 07/15/25 12:30 Extremity Injury MDM Narrative MDM Narrative:: 24-year-old female patient came in for evaluation regarding wound check. Patient sustained a laceration to the hand, incident happened about 5 days ago, came to the emergency room and repair and suturing was done. Today patient woke up with a hand described as frozen, and having difficulty extending the hand. Denies any redness denies any swelling denies any fever. Patient also complained of hyperventilation tachycardia and jittery. Denies any other complaints. Patient is not taking any medication. Patient's workup today all came back normal including laboratory workup, except positive for marijuana. Chest x-ray also came back unremarkable. EKG showed normal sinus rhythm, ventricular rate of 93 bpm, no ST segment elevation or dep ression noted. Patient data External records reviewed:: None Clinical information provided by:: patient Social determinants that could affect healthcare access:: none Patient has the following chronic illnesses:: Although pt's initial presentation was concerning, Pt now reports feeling better after Ativan and has an unremarkable vital signs. Stable for D/C. Hydroxyzine given as needed How is presenting disease/condition affected by chronic disease/condition?: exacerbated by Evaluation data The following diagnostics were reviewed and interpreted by me:: lab results, radiology exam(s) and EKG tracing(s) Lab and/or radiology exams considered but not ordered:: None Interpretation Summary: See above Medications / Prescriptions Medications or Prescriptions considered but not ordered:: None Medication administrations:: None Consultations Consultation(s) initiated? (list below): No Diagnosis Upper Extremity Injury Differential Diagnosis: other (Hand stiffness, anxiety, wound check) Most likely diagnosis given after review of the tests above:: Wound check, anxiety Admission Indicated Admission indicated?: not indicated Admission Request Was there a request for admission?: No Disposition Plan Disposition Plan: Discharge Discharge Attestation Discharge Attestation: The patient was given an opportunity to ask questions and understood the discharge instructions. Discharge instructions specifically effects, indications for sooner follow up or return to the emergency department, and the expected course of current diagnosis. Patient condition: Stable Discharge Plan Plan Patient Disposition: HOME (Self Care) Discharge Disposition comment: Stable Prescriptions/Referrals Prescriptions/Med Rec: No Action ferrous sulfate 325 mg (65 mg iron) tablet 1 tab PO DAILY Patient Comments: TAKE 1 TABLET BY MOUTH EVERY DAY FOR 30 DAYS naproxen 500 mg tablet 500 mg PO BID PRN (Reason: pain) Qty: 30 0RF metoprolol succinate 25 mg tablet extended release 24 hr 25 mg PO QDAY Qty: 30 0RF pantoprazole [Protonix] 40 mg tablet,delayed release (DR/EC) 40 mg PO QDAY Qty: 30 0RF pantoprazole [Protonix] 40 mg tablet,delayed release (DR/EC) 40 mg PO QDAY Qty: 30 0RF Referrals: Dangelo Alatorre MD [Primary Care Provider, Family Practice] - In 1 week Problem List Clinical Impression: Anxiety, Visit for wound check Patient/Caregiver Discharge Instructions Discharge Activity: activity as tolerated Education Materials: ED Wound Care Additional Instructions: Thank you for the opportunity for serving you today. You are stable for discharged . You are advised to: Follow-up with your PCP in 1 to 2 days Return to ED for worsening of symptoms Increase oral fluids Buy [id number] Benadryl and take 25 mg every 8 hours as needed for your anxiety Print Language: Sudanese Stand Alone Forms: Sary Award Info., Patient Portal Info Letter PA/AMBER Supervising Physician SHANT/AMBER Supervising Physician: MD Sandra
== END 2025-07-15 17:06 | disposition home or self-care (01) ==
PROVIDERS: Nurse Practitioner Primary Care; Emergency Provider Emergency Medicine; PCP Family Medicine
DX: S61.411D Laceration without foreign body of right hand, subsequent encounter (principal); F41.9 Anxiety disorder, unspecified; R07.89 Other chest pain; R94.31 Abnormal electrocardiogram [ECG] [EKG]; X58.XXXD Exposure to other specified factors, subsequent encounter
CPT/HCPCS: 36415; 71046; 80053; 80307; 81025; 84439; 84443; 84484; 85025; 93005; 99283